=== PATIENT | female | born 1965 | race Caucasian/White ===

== ENCOUNTER → 2016-09-20 | Outpatient (CLI) | payer BC ==
[~2016-09-20] MED LIST: BMT1T PO; CLIN-78 PO; DULO30CA3 PO; DULO60CA7 PO; GBPN100C PO; LORA10CA PO; MNTL10T PO; PRED20TA PO
[2016-09-20 09:53] LABS: ANION GAP 15.2 MEQ/L (3-15)
== END ==
LOC: LAB 09:01
PROVIDERS: ATTEND Family Medicine
DX: R60.0 Localized edema (principal)
CPT/HCPCS: 36415; 80048